=== PATIENT | male | born 1965 | race Caucasian/White ===

== ENCOUNTER → 2019-07-21 | Day surgery (SDC) | payer BC ==
[~2019-07-21] VITALS: Ht 160 cm; Wt 93.0 kg
[~2019-07-21] MED LIST: ASPIR LOW81 MG PO; ENALAPRIL5 MG PO
[2019-07-21 06:35] VITALS: BP 162/94
[2019-07-21 08:08] VITALS: BP 153/94
[2019-07-21 08:21] VITALS: BP 153/94
[2019-07-21 08:38] VITALS: BP 154/88
== END | disposition home or self-care (01) ==
LOC: SDC 07-18 02:23
DX: Z12.11 Encounter for screening for malignant neoplasm of colon (principal); I10 Essential (primary) hypertension; I25.2 Old myocardial infarction; E66.01 Morbid (severe) obesity due to excess calories; Z68.41 Body mass index [BMI] 40.0-44.9, adult; Z87.891 Personal history of nicotine dependence; Z98.890 Other specified postprocedural states

== ENCOUNTER → 2020-07-09 | Outpatient (CLI) | payer BC | END | disposition home or self-care (01) | LOC: COVID19 09:38 | PROVIDERS: ATTEND Nurse Practitioner Family | DX: Z20.822 Contact with and (suspected) exposure to COVID-19 (principal) ==

== ENCOUNTER → 2020-10-14 | Outpatient (CLI) | payer BC | END | disposition home or self-care (01) | LOC: COVID19 13:53 | PROVIDERS: ATTEND Family Medicine | DX: U07.1 COVID-19 (principal) ==

== ENCOUNTER → 2020-10-25 | Outpatient (CLI) | payer BC | END | disposition home or self-care (01) | LOC: RAD 13:39 | PROVIDERS: ATTEND Family Medicine | DX: J18.9 Pneumonia, unspecified organism (principal) ==

== ENCOUNTER → 2020-11-01 | Outpatient (CLI) | payer BC | END | disposition home or self-care (01) | LOC: RAD 12:51 | PROVIDERS: ATTEND Family Medicine | DX: J98.11 Atelectasis (principal); J18.9 Pneumonia, unspecified organism ==

== ENCOUNTER → 2020-11-25 | Outpatient (CLI) | payer BC | END | disposition home or self-care (01) | LOC: RAD 16:45 | PROVIDERS: ATTEND Family Medicine | DX: Z09 Encounter for follow-up examination after completed treatment for conditions other than malignant neoplasm (principal); J98.11 Atelectasis; R06.02 Shortness of breath; Z86.16 Personal history of COVID-19 ==

== ENCOUNTER → 2021-03-13 | Outpatient (CLI) | payer BC | END | disposition home or self-care (01) | LOC: RAD 14:05 | PROVIDERS: ATTEND Family Medicine | DX: U07.1 COVID-19 (principal); J12.82 Pneumonia due to coronavirus disease 2019 ==

== ENCOUNTER → 2022-03-12 | Outpatient (CLI) | payer BC | END | disposition home or self-care (01) | LOC: RAD 12:48 | PROVIDERS: ATTEND Family Medicine | DX: M25.741 Osteophyte, right hand (principal) ==